=== PATIENT | male | born 2000 | race Caucasian/White ===

== ENCOUNTER 2022-01-06 15:13 | Emergency (ER) | payer OTHER ==
[2022-01-06 15:38] VITALS: TEMP 97.8; BMI 23.6
[2022-01-06] MEDS ORDERED: ACETAMINOPHEN 1000 MG/100 ML BAG IVPB ONE (16:19)
[2022-01-06] MEDS ORDERED: fentaNYL CITRATE 250 MCG/5 ML VIAL IVPUSH ONE (16:20)
[2022-01-06] MEDS ORDERED: LACTATED RINGERS SOLUTION 1000 ML INFUS.BAG IV ONE (16:20)
[2022-01-06] MEDS ORDERED: ACETAMINOPHEN INJECTION 100 ML IVPB ONE (16:20)
[2022-01-06 17:16] VITALS: BP 117/72; PULSE 82
== END 2022-01-06 18:45 | disposition home or self-care (01) ==
LOC: FER 15:13
PROC: 3E033GC Introduction of Other Therapeutic Substance into Peripheral Vein, Percutaneous Approach (ICD-10-PCS; principal; 2022-01-06)
DX: S43.004A Unspecified dislocation of right shoulder joint, initial encounter (principal); R55 Syncope and collapse; V00.131A Fall from skateboard, initial encounter
CPT/HCPCS: 73030-TC-RT-FY; 93005; 99291